=== PATIENT | female | born 1985 | race Caucasian/White ===

== ENCOUNTER 2017-05-27 12:19 | Emergency (ER) | payer BC, OTHER ==
[2017-05-27 14:23] VITALS: BP 118/66
[2017-05-27] MEDS ORDERED: Ondansetron ODT TAB* 4 MG PO ONE (14:29)
--- NOTE | 2017-05-27 14:35 | UC ---
General HPI - HPI Summary HPI Summary: Patient is breastdeeding, noticed a red area on the right breast and started a fever last night. complianing of breast pain and nausea - History of Current Complaint Chief Complaint: UCSkin Stated Complaint: MASTITIS Time Seen by Provider: 05/27/17 14:05 Hx Obtained From: Patient Hx Last Menstrual Period: MAY 2017 Onset/Duration: Sudden Onset, Lasting Hours Timing: Constant Onset Severity: Mild Current Severity: Moderate Associated Signs & Symptoms: Positive: Nausea - Allergy/Home Medications Allergies/Adverse Reactions: Allergies Allergy/AdvReac Type Severity Reaction Status Date / Time bee stings Allergy Swelling Uncoded 05/27/17 14:15 fresh pineapple Allergy Swelling Uncoded 05/27/17 14:15 Of Face,Lips,& Throat Home Medications: Home Medications Acetaminophen TAB* [Tylenol TAB*] 650 mg PO Q4H PRN 05/27/17 [History Confirmed 05/27/17] Vitamin [Calna] 1 tab PO 05/27/17 [History] PMH/Surg Hx/FS Hx/Imm Hx Previously Healthy: Yes - Surgical History Surgical History: Yes Surgery Procedure, Year, and Place: 2 nipples removed, wisdom teeth. MAR 02 2017 - Family History Known Family History: Negative: Hypertension - Social History Alcohol Use: None Substance Use Type: None Smoking Status (MU): Never Smoked Tobacco Review of Systems Constitutional: Fever, Fatigue Skin: Negative Eyes: Negative ENT: Negative Respiratory: Negative Cardiovascular: Negative Gastrointestinal: Nausea Genitourinary: Negative Motor: Negative Neurovascular: Negative Musculoskeletal: Negative Neurological: Negative Psychological: Negative Is Patient Immunocompromised?: No All Other Systems Reviewed And Are Negative: Yes Physical Exam Triage Information Reviewed: Yes Appearance: Well-Nourished, Ill-Appearing, Pain Distress Vital Signs: Initial Vital Signs Temp 99 F 05/27/17 14:16 Pulse 95 05/27/17 14:16 Resp 18 05/27/17 14:16 BP 118/66 05/27/17 14:16 Pulse Ox 98 05/27/17 14:16 Vital Signs Reviewed: Yes Eye Exam: Normal ENT Exam: Normal ENT: Positive: Pharynx normal Dental Exam: Normal Neck exam: Normal Respiratory Exam: Normal Respiratory: Positive: Chest non-tender, Lungs clear, Normal breath sounds Cardiovascular Exam: Normal Cardiovascular: Positive: RRR, No Murmur, Pulses Normal Abdominal Exam: Normal Abdomen Description: Positive: Nontender, No Organomegaly, Soft Bowel Sounds: Positive: Present Musculoskeletal Exam: Normal Neurological Exam: Normal Psychological Exam: Normal Skin: Positive: Other - lower right breast is red and hard Course/Dx - Course Course Of Treatment: hx obtained, exam performed ,meds reviewed, treated for mastitis and nausea - Differential Dx - Multi-Symptom Provider Diagnoses: right mastitis. nausea. fever Discharge - Discharge Plan Condition: Stable Disposition: HOME Prescriptions: Cephalexin CAP* [Keflex CAP*] 500 mg PO TID #21 cap Ondansetron ODT TAB* [Zofran 4 MG Odt TAB*] 4 mg PO Q8H PRN #12 tab.odt PRN Reason: Nausea Patient Education Materials: Mastitis (ED) Referrals: Christine Saab [Primary Care Provider] - Additional Instructions: 1. take the medication as prescribed. 2. warm compresses to the affected breast. 3. breast massage to help prevent reoccurance. 4. continue with increased fluids 5. follow up with your doctor if not improving
== END 2017-05-27 14:40 | disposition home or self-care (01) ==
LOC: UCCORT 12:19
DX: N61.0 Mastitis without abscess (principal); R11.0 Nausea; R50.9 Fever, unspecified
CPT/HCPCS: 99212; A9270-GY; G0463

== ENCOUNTER 2017-11-25 16:39 | Emergency (ER) | payer OTHER ==
[2017-11-25 17:13] VITALS: BP 115/73
--- NOTE | 2017-11-25 17:15 | UC ---
UC General HPI - HPI Summary HPI Summary: sore throat with temporal headache x 2 days. no fever, uri or cough. - History of Current Complaint Hx Obtained From: Patient Hx Last Menstrual Period: MAY 2017 Onset/Duration: Gradual Onset Timing: Constant Aggravating: nothing Alleviating: nothing Associated Signs & Symptoms: Positive: Headache. Negative: Cough, Fever <Louann Almeida - Last Filed: 11/25/17 17:08> <Jimenez Marcano - Last Filed: 11/25/17 17:58> - History of Current Complaint Stated Complaint: SORE THROAT Time Seen by Provider: 11/25/17 17:08 - Allergy/Home Medications Allergies/Adverse Reactions: Allergies Allergy/AdvReac Type Severity Reaction Status Date / Time bee stings Allergy Swelling Uncoded 11/25/17 17:13 fresh pineapple Allergy Swelling Uncoded 11/25/17 17:13 Of Face,Lips,& Throat Home Medications: Home Medications NK [No Home Medications Reported] 11/25/17 [History Confirmed 11/25/17] PMH/Surg Hx/FS Hx/Imm Hx Previously Healthy: Yes - Surgical History Surgical History: Yes Surgery Procedure, Year, and Place: 2 nipples removed, wisdom teeth. 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 Lives: With Family Alcohol Use: None Substance Use Type: None Smoking Status (MU): Never Smoked Tobacco - Immunization History Vaccination Up to Date: Yes <Louann Almeida - Last Filed: 11/25/17 17:08> Review of Systems Constitutional: Negative Skin: Negative Eyes: Negative ENT: Sore Throat Respiratory: Negative Cardiovascular: Negative Gastrointestinal: Negative Genitourinary: Negative Motor: Negative Neurovascular: Negative Musculoskeletal: Negative Neurological: Headache Psychological: Negative Is Patient Immunocompromised?: No All Other Systems Reviewed And Are Negative: Yes <Louann Almeida - Last Filed: 11/25/17 17:08> Physical Exam Triage Information Reviewed: Yes Appearance: Well-Appearing Eyes: Positive: Conjunctiva Clear ENT: Positive: Pharyngeal erythema, TMs normal, Tonsillar exudate, Uvula midline. Negative: Nasal congestion, Nasal drainage, Trismus, Muffled voice, Hoarse voice Neck: Positive: Supple, Tenderness @ - peritonsilar nodes, Enlarged Nodes @ - peritonsialr Respiratory: Positive: Lungs clear, Normal breath sounds Cardiovascular: Positive: RRR, No Murmur Abdomen Description: Positive: Nontender, No Organomegaly, Soft Bowel Sounds: Positive: Present Musculoskeletal: Positive: ROM Intact Neurological: Positive: Alert Psychological: Positive: Age Appropriate Behavior Skin Exam: Normal <Louann Almeida Last Filed: 11/25/17 17:08> Vital Signs: Initial Vital Signs Temp 99.3 F 11/25/17 17:09 Pulse 102 11/25/17 17:09 Resp 16 11/25/17 17:09 BP 115/73 11/25/17 17:09 Pulse Ox 97 11/25/17 17:09 <Jimenez Marcano - Last Filed: 11/25/17 17:58> Diagnostics - Laboratory Diagnostic Studies Completed/Ordered: rapid strep=neg <Louann Almeida Last Filed: 11/25/17 17:08> Course/Dx - Course Course Of Treatment: rapid strep=neg. tx supportive - Differential Dx - Multi-Symptom Provider Diagnoses: pharyngitis <AlmeidaLouann Villarreal Last Filed: 11/25/17 17:08> Discharge - Sign-Out/Discharge Documenting (check all that apply): Discharge/Admit/Transfer - Billing Disposition and Condition Condition: STABLE Disposition: HOME <AlmeidaLouann Villarreal Last Filed: 11/25/17 17:08> - Billing Disposition and Condition Condition: STABLE Disposition: HOME <Jimenez Marcano - Last Filed: 11/25/17 17:58> - Discharge Plan Condition: Stable Disposition: HOME Patient Education Materials: Pharyngitis (ED) Referrals: Steve Fink DO [Primary Care Provider] - 5 Days Additional Instructions: Per institutional requirements, I have reviewed the chart, however, I was not consulted specifically or made aware of this patient by the above midlevel provider. I did not personally evaluate, interact with , or disposition this patient.
== END 2017-11-25 17:51 | disposition home or self-care (01) ==
LOC: UCCORT 16:39
DX: J02.9 Acute pharyngitis, unspecified (principal); R51 Headache; Z91.030 Bee allergy status
CPT/HCPCS: 87651; 99201; G0463